=== PATIENT | female | born 1970 | race Caucasian/White ===

== ENCOUNTER 2016-07-17 21:00 | Emergency (ER) | payer MEDICAID ==
[~2016-07-17] VITALS: Ht 172.7 cm; Wt 56.7 kg
[2016-07-17] MEDS ORDERED: CLONIDINE 0.2M0.2 MG PO (21:37)
[2016-07-17] MEDS ORDERED: BACLOFEN10 MG ORAL (21:37)
[2016-07-17] MEDS ORDERED: PHENOBARBITAL60 MG ORAL (21:37)
[2016-07-17] MEDS ORDERED: DEPAKOTE ER500 MG ORAL (21:37)
[2016-07-17] MEDS ORDERED: ZOFRAN ODT8 MG ORAL (21:37)
[2016-07-17] MEDS ORDERED: CALCIUM 500-VI1 EACH PO (21:37)
[2016-07-17] MEDS ORDERED: LACTULOSE10 GM/153 PO (21:37)
[2016-07-17] MEDS ORDERED: DILAUDID8 MG PO (21:37)
--- NOTE | 2016-07-17 21:41 | Emergency Room Report ---
History of Present Illness General Chief Complaint: Generalized Weakness Source: Patient, Significant Other Present Illness HPI The patient presents with chronic weakness and difficulty swallowing and chronic pain which is worsened. She was last evaluated at [facility] a week ago. She was admitted for possible exacerbation of MS versus opiate seeking behavior. She has been unable to ambulate for 5 months with leg weakness which has been stated as deconditioning. During that time she has also had difficulty swallowing. She had a swallow study done and they state there was no obstruction (however, the patient and sig other do not know any further analysis of where the difficulties are). She is having trouble swallowing her medications - of particular concern to her are her Dilaudid 8 mg which she takes every 4 hours. She has a pain contract MD. Of recent it seems this problem gets worse when she falls or looses her balance. This has not happened since discharge. They state the swallow study was done in [place]. An MRI was done last week to look for MS and the results are pending. She fell before the evaluation at [facility] and scraped her R elbow. No local care. There is swelling of R hand. Her brought her to us because he is worried about swelling of her R hand and possible infection. The reason we were sought out was because he felt we would be an infectious disease specialty hospital. She had spinal osteomyelitis and was treated for many months with IV antibiotics. For at least 4 months, the doctors state there is no more infection in the bones of her spine. This is one area where she has pain. She states she feels feverish but no documented temp. H/O seizures on dilantin and valproic acid. Last seizure long ago. 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 She has multiple allergies. Chronic constipation. No dysuria. Allergies: Coded Allergies: ACETAMINOPHEN (Verified Allergy, Unknown, 07/17/16) AMOXICILLIN (Verified Allergy, Unknown, 07/17/16) CLINDAMYCIN (Verified Allergy, Unknown, 07/17/16) CODEINE (Verified Allergy, Unknown, 07/17/16) ERYTHROMYCIN BASE (Verified Allergy, Unknown, 07/17/16) HYDROCODONE (Verified Allergy, Unknown, 07/17/16) KETOROLAC (Verified Allergy, Unknown, 07/17/16) MORPHINE (Verified Allergy, Unknown, 07/17/16) NSAIDS (NON-STEROIDAL ANTI-INFLAMMA (Verified Allergy, Unknown, 07/17/16) OXYCODONE (Verified Allergy, Unknown, 07/17/16) PENICILLINS (Verified Allergy, Unknown, 07/17/16) Patient History Past Medical History: see triage record, old chart reviewed Social History: Denies: smoking - former Social History Narrative , from [place] Last Menstrual Period: 2 years ago Reviewed Nursing Documentation: PMH: Agreed, PSxH: Agreed Review of Systems All Other Systems: negative except mentioned in HPI Physical Exam Vital Signs Date Time Temp Pulse Resp B/P Pulse Ox O2 Delivery O2 Flow Rate FiO2 07/17/16 21:08 98.1 84 16 121/77 98 Room Air Sp02 EP Interpretation: reviewed, normal General Appearance: no apparent distress, GCS 15, Chronically Ill Head: normocephalic, atraumatic Eyes: bilateral eye EOMI, bilateral eye PERRL, bilateral eye normal inspection ENT: moist mucus membranes - carious teeth with gum disease Neck: supple Respiratory: lungs clear, normal breath sounds Cardiovascular #1: regular rate, rhythm Cardiovascular #2: 2+ radial (R) Gastrointestinal: normal inspection, normal bowel sounds, non tender, no mass, non-distended Musculoskeletal: back normal, gait/station normal, normal range of motion, swelling - R elbow but no olecronon bursitis Neurologic: alert, oriented x3, cerebellar normal, speech normal, no Babinski, motor weakness - LE bilaterally, able to wiggle toes, but not move feet up or down (while requested) UE strength normal Psychiatric: mood/affect normal Skin: warm/dry, other - bruises from blood draws and IVs, abrasions - R elbow, no erythema Medical Decision Making Diagnostic Impression: Primary Impression: Exacerbation of chronic pain Additional Impressions: Chronic weaknes - etiology unclear Dysphagia Qualified Codes: R13.14 - Dysphagia, pharyngoesophageal phase Chronic prescription opiate use ER Course Extremely complicated patient with chronic illness/weakness presenting requesting evaluation for possible infection of R hand (as well as assessment for difficulty swallowing and LE weakness). Ddx: MS, deconditioning, electrolyte abnormality, achalasia, opiate dependence/seeking, muscular dystrophy, myasthenia gravis amongst others. Evaluation with labs, EKG and CXR. CT not indicated as recent studies done. pushing for analgesia. Review [facility] records. IV cancelled as VS stable and moist mucous membranes (limited access). Labs with normal WBC, H/H and renal function. No evidence of acute infection at this time. Weakness in process of being evaluated (5 months and recent MRI). Patient improved with analgesia. Patient stable for outpatient observation and treatment. Laboratory Tests Test 07/17/16 22:15 07/17/16 22:52 White Blood Count 5.0 K/UL (4.8-10.8) Red Blood Count 4.03 M/UL (4.20-5.40) L Hemoglobin 13.3 G/DL (12.0-16.0) Hematocrit 36.6 % (37.0-47.0) L Mean Corpuscular Volume 91 FL (80-99) Mean Corpuscular Hemoglobin 33.0 PG (27.0-31.0) H Mean Corpuscular Hemoglobin Concent 36.3 G/DL (32.0-36.0) H Red Cell Distribution Width 12.4 % (11.6-14.8) Platelet Count 193 K/UL (150-450) Mean Platelet Volume 5.2 FL (6.5-10.1) L Neutrophils (%) (Auto) 57.5 % (45.0-75.0) Lymphocytes (%) (Auto) 35.4 % (20.0-45.0) Monocytes (%) (Auto) 5.7 % (1.0-10.0) Eosinophils (%) (Auto) 0.5 % (0.0-3.0) Basophils (%) (Auto) 0.9 % (0.0-2.0) Erythrocyte Sedimentation Rate 33 MM/HR (0-20) H Prothrombin Time 10.6 SEC (9.30-11.50) Prothrombin Time INR 1.0 (0.9-1.1) PTT 24 SEC (23-33) Sodium Level 139 mEQ/L (135-145) Potassium Level 3.9 mEQ/L (3.4-4.9) Chloride Level 98 mEQ/L (98-107) Carbon Dioxide Level 24 mEQ/L (20-30) Anion Gap 17 (5-15) H Blood Urea Nitrogen 11 mg/dL (7-23) Creatinine 0.4 mg/dL (0.5-0.9) L Estimate Glomerular Filtration Rate > 60 mL/min (>60) Glucose Level 88 mg/dL (74-106) Lactic Acid Level 0.70 mmol/L (0.66-2.22) Calcium Level 8.8 mg/dL (8.6-10.2) Phosphorus Level 2.6 mg/dL (2.5-4.8) Magnesium Level 1.8 mg/dL (1.7-2.5) Total Bilirubin < 0.2 mg/dL (0.0-1.2) Aspartate Amino Transferase (AST) 15 U/L (5-40) Alanine Aminotransferase (ALT) 13 U/L (3-33) Alkaline Phosphatase 69 U/L (35-104) Total Creatine Kinase 101 U/L (26-140) Pro-B-Type Natriuretic Peptide 26 pg/mL (0-125) Total Protein 6.6 g/dL (6.6-8.7) Albumin 4.2 g/dL (3.5-5.2) Globulin 2.4 g/dL Albumin/Globulin Ratio 1.7 (1.0-2.7) Phenytoin (Dilantin) Level 6.6 ug/mL (10-20) L Valproic Acid Level 17 ug/mL (50-100) L Serum Alcohol < 10 mg/dL Urine Color Pale yellow Urine Appearance Clear Urine pH 7 (4.5-8.0) Urine Specific [place] 1.010 (1.005-1.035) Urine Protein Negative (NEGATIVE) Urine Glucose (UA) Negative (NEGATIVE) Urine Ketones 3+ (NEGATIVE) H Urine Occult Blood Negative (NEGATIVE) Urine Nitrite Negative (NEGATIVE) Urine Bilirubin Negative (NEGATIVE) Urine Urobilinogen Normal MG/DL (0.0-1.0) Urine Leukocyte Esterase 1+ (NEGATIVE) H Urine RBC 5-10 /HPF (0 - 2) H Urine WBC 0-2 /HPF (0 - 2) Urine Squamous Epithelial Cells Moderate /LPF (NONE/OCC) H Urine Bacteria Few /HPF (NONE) Urine Opiates Screen Positive (NEGATIVE) H Urine Barbiturates Screen Positive (NEGATIVE) H Phencyclidine (PCP) Screen Negative (NEGATIVE) Urine Amphetamines Screen Negative (NEGATIVE) Urine Benzodiazepines Screen Negative (NEGATIVE) Urine Cocaine Screen Negative (NEGATIVE) Urine Marijuana (THC) Screen Negative (NEGATIVE) EKG Diagnostic Results Rate: normal Rhythm: NSR ST Segments: no acute changes Rhythm Strip Diag. Results EP Interpretation: yes Rhythm: NSR, no PVC's, no ectopy Chest X-Ray Diagnostic Results EP Interpretation: Yes Findings: no consolidation, no effusion, no pneumothorax, no acute cardiopulmonary disease Number of Views: 1 Last Vital Signs Date Time Temp Pulse Resp B/P Pulse Ox O2 Delivery O2 Flow Rate FiO2 07/18/16 01:36 98.1 61 12 132/86 98 Room Air Status: improved Disposition: HOME, SELF-CARE Condition: Improved Scripts Bacitracin (Bacitracin) 28.4 Gm Oint...g. 1 APPLIC TOPIC BID, #10 GM Prov: Nacho Caba M.D. 07/18/16 Nacho Caba M.D. Jul 17, 2016 21:41
[2016-07-17 22:30] LABS: BASOPHILS % (AUTO) 0.9 % (0.0-2.0); EOSINOPHILS % (AUTO) 0.5 % (0.0-3.0); LYMPHOCYTES % (AUTO) 35.4 % (20.0-45.0); MEAN CORPUSCULAR HGB CONC 36.3 G/DL (32.0-36.0); MEAN CORPUSCULAR VOLUME 91 FL (80-99); MEAN PLATELET VOLUME 5.2 FL (6.5-10.1); MONOCYTES % (AUTO) 5.7 % (1.0-10.0); NEUTROPHILS % (AUTO) 57.5 % (45.0-75.0); PLATELET COUNT 193 K/UL (150-450); RED BLOOD COUNT 4.03 M/UL (4.20-5.40); RED CELL DISTRIBUTION WIDTH 12.4 % (11.6-14.8)
[2016-07-17] MEDS ORDERED: HYDROmorphone 1mg/ml Carpuject IM ONE ×2 (22:30→23:15)
[2016-07-17 22:40] LABS: PROTHROMBIN TIME 10.6 SEC (9.30-11.50)
[2016-07-17 22:49] LABS: ALANINE AMINOTRANSFERASE 13 U/L (3-33); ALBUMIN/GLOBULIN RATIO 1.7 (1.0-2.7); ALCOHOL < 10 mg/dL; ANION GAP 17 (5-15); ASPARTATE AMINO TRANSFERASE 15 U/L (5-40); CALCIUM 8.8 mg/dL (8.6-10.2); CARBON DIOXIDE 24 mEQ/L (20-30); CHLORIDE 98 mEQ/L (98-107); CREATININE 0.4 mg/dL (0.5-0.9); GLOMERULAR FILTRATION RATE > 60 mL/min (>60); HEMOLYSIS 6; MAGNESIUM 1.8 mg/dL (1.7-2.5); PHOSPHORUS 2.6 mg/dL (2.5-4.8); POTASSIUM 3.9 mEQ/L (3.4-4.9); SODIUM 139 mEQ/L (135-145); TOTAL PROTEIN 6.6 g/dL (6.6-8.7)
[2016-07-17 23:06] LABS: APPEARANCE,URINE CLEAR; KETONES,URINE 3+ (NEGATIVE); LEUKOCYTE ESTERASE ,URINE 1+ (NEGATIVE); NITRITE,URINE NEGATIVE (NEGATIVE); PH,URINE 7 (4.5-8.0); PROTEIN,URINE NEGATIVE (NEGATIVE); UROBILINOGEN,URINE NORMAL MG/DL (0.0-1.0)
[2016-07-17 23:17] LABS: BACTERIA,URINE FEW /HPF; SQUAMOUS EPITHELIAL CELL,UR MODERATE /LPF (NONE/OCC); WBC,URINE 0-2 /HPF (0 - 2)
[2016-07-17 23:20] VITALS: BP 116/84
[2016-07-17 23:35] LABS: ERYTHROCYTE SEDIMENTATION RATE 33 MM/HR (0-20)
[2016-07-18] MEDS ORDERED: HYDROmorphone 1mg/ml Carpuject IM ONE (00:30)
[2016-07-18] MEDS ORDERED: BACITRACIN15 GM TOPIC (01:14)
[2016-07-18] MEDS ORDERED: Bacitracin Oint UD TOPIC ONE (01:15)
[2016-07-18 01:35] VITALS: BP 132/86
[2016-07-18 01:36] VITALS: BP 132/86
--- NOTE | 2016-07-18 12:27 | Diagnostic Imaging Report ---
Indication: Chest Pain Comparison: None A single view chest radiograph was obtained. Findings: Cardiomediastinal appearance is within normal limits for age. Pulmonary vascularity is appropriate. The diaphragmatic contour is smooth and costophrenic angles are sharp. No pleural effusions are identified. The bones are unremarkable. Impression: No acute findings
--- NOTE | 2016-07-19 07:27 | Cardiology Report ---
APPROVED REPORT EKG Measurement Heart [id number] Normal sinus rhythm Normal ECG
== END 2016-07-18 01:37 | disposition home or self-care (01) ==
LOC: EMR 21:25
DX: G89.29 Other chronic pain (principal); R53.1 Weakness; R13.14 Dysphagia, pharyngoesophageal phase; F11.90 Opioid use, unspecified, uncomplicated; R22.31 Localized swelling, mass and lump, right upper limb; K59.00 Constipation, unspecified; Z88.6 Allergy status to analgesic agent; Z88.1 Allergy status to other antibiotic agents; Z88.0 Allergy status to penicillin; G40.909 Epilepsy, unspecified, not intractable, without status epilepticus; K06.9 Disorder of gingiva and edentulous alveolar ridge, unspecified
CPT/HCPCS: 36415; 71010; 80053; 80164; 80185; 80300; 80329; 81003; 82550; 83605; 83735; 83880; 84100; 85025; 85610; 85651; 85730; 93005; 96372; 99283; J1170; J2550

== ENCOUNTER 2016-07-26 21:09 | Emergency (ER) | payer MEDICAID ==
[~2016-07-26] VITALS: Ht 172.7 cm; Wt 54.4 kg
[~2016-07-26 21:09] MED LIST: BACITRACIN15 GM TOPIC; BACLOFEN10 MG ORAL; CALCIUM 500-VI1 EACH PO; CLONIDINE 0.2M0.2 MG PO; DEPAKOTE ER500 MG ORAL; DILAUDID8 MG PO; LACTULOSE10 GM/153 PO; PHENOBARBITAL60 MG ORAL; ZOFRAN ODT8 MG ORAL
[2016-07-26 21:24] VITALS: BP 102/63
[2016-07-26 22:05] VITALS: BP 102/63
--- NOTE | 2016-07-26 23:06 | Emergency Room Report ---
History of Present Illness General Chief Complaint: Allergic Reaction Present Illness Allergies: Coded Allergies: ACETAMINOPHEN (Verified Allergy, Unknown, 07/17/16) AMOXICILLIN (Verified Allergy, Unknown, 07/17/16) CLINDAMYCIN (Verified Allergy, Unknown, 07/17/16) CODEINE (Verified Allergy, Unknown, 07/17/16) ERYTHROMYCIN BASE (Verified Allergy, Unknown, 07/17/16) HYDROCODONE (Verified Allergy, Unknown, 07/17/16) KETOROLAC (Verified Allergy, Unknown, 07/17/16) MORPHINE (Verified Allergy, Unknown, 07/17/16) NSAIDS (NON-STEROIDAL ANTI-INFLAMMA (Verified Allergy, Unknown, 07/17/16) OXYCODONE (Verified Allergy, Unknown, 07/17/16) PENICILLINS (Verified Allergy, Unknown, 07/17/16) PROPOFOL (Verified Allergy, Unknown, 07/26/16) Patient History Last Menstrual Period: UNKNOWN Now: No Physical Exam Vital Signs Date Time Temp Pulse Resp B/P Pulse Ox O2 Delivery O2 Flow Rate FiO2 07/26/16 21:20 99.0 78 18 102/63 94 Room Air Medical Decision Making Diagnostic Impression: Primary Impression: Allergic reaction Last Vital Signs Date Time Temp Pulse Resp B/P Pulse Ox O2 Delivery O2 Flow Rate FiO2 07/26/16 22:05 99.0 78 18 102/63 94 Room Air Reevaluation Impression Informed by RN at 1030pm that patient left before being seen. Disposition: LEFT W/OUT BEING SEEN Condition: Stable Referrals: [facility],REFERRING (PCP) KERRIE BEGUM M.D. Jul 26, 2016 23:06
== END 2016-07-26 22:05 | disposition left against medical advice (07) ==
LOC: EMR 22:00
DX: T78.40XA Allergy, unspecified, initial encounter (principal); Z53.21 Procedure and treatment not carried out due to patient leaving prior to being seen by health care provider; Z88.1 Allergy status to other antibiotic agents; Z88.6 Allergy status to analgesic agent; X58.XXXA Exposure to other specified factors, initial encounter; Y92.9 Unspecified place or not applicable
CPT/HCPCS: 99281